=== PATIENT | male | born 1945 | race American Indian/Alaskan Native ===

== ENCOUNTER 2020-05-15 23:18 | Emergency (ER) | payer MEDICARE ==
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
[2020-05-16] MEDS ORDERED: ACETAMINOPHEN 325 MG TAB PO PRN (00:33)
[2020-05-16 00:44] LABS: Basophils % (Auto) 0.6 % (0.0-1.8); Eosinophils # (Auto) 0.3 K/mm3 (0.0-0.4); Eosinophils % (Auto) 4.3 % (0.0-4.3); Hematocrit 35.9 % (35.5-45.6); Lymphocytes # (Auto) 1.6 K/mm3 (1.2-5.4); Lymphocytes % (Auto) 25.6 % (13.4-35.0); Mean Corpuscular HGB Conc 34 % (32-34); Mean Corpuscular Volume 94 fl (84-94); Monocytes # (Auto) 0.5 K/mm3 (0.0-0.8); Monocytes % (Auto) 8.4 % (0.0-7.3); Platelet Count 127 K/mm3 (140-440); Red Blood Count 3.81 M/mm3 (3.65-5.03); Red Cell Distribution Width 14.1 % (13.2-15.2)
[2020-05-16 00:59] LABS: BUN/Creatinine Ratio 18; Blood Urea Nitrogen 16 mg/dL (9-20); Calcium 8.8 mg/dL (8.4-10.2); Hemolysis Index 9
[2020-05-16 01:25] LABS: Free T4 (Free Thyroxine) 0.8 ng/dL (0.76-1.46)
[2020-05-16 04:22] LABS: Bilirubin,Urine NEG (Negative); Blood,Urine SM (Negative); Color,Urine Yellow (Yellow); Mucus,Urine FEW /HPF; Protein,Urine <15 mg/dL mg/dL (Negative); Urobilinogen,Urine < 2.0 mg/dL (<2.0); WBC,Urine < 1.0 /HPF (0.0-6.0)
[2020-05-16 05:09] LABS: Amphetamine Screen,Urine PRESUMPTIVE NEGATIVE; Benzodiazepines Screen,Urine PRESUMPTIVE NEGATIVE; Cannabinoid Screen,Urine PRESUMPTIVE NEGATIVE; Cocaine Screen,Urine PRESUMPTIVE NEGATIVE; Methadone Screen,Urine PRESUMPTIVE NEGATIVE; Opiate Screen,Urine PRESUMPTIVE NEGATIVE
[2020-05-16] MEDS ORDERED: LEVOTHYROXINE 50 MCG TAB PO SCH (06:00)
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
[2020-05-16] MEDS ORDERED: QUEtiapine 25 MG TAB PO SCH (10:00)
[2020-05-16] MEDS ORDERED: PARoxetine 10 MG TAB PO SCH (10:00)
[2020-05-16] MEDS: levETIRAcetam 500 MG/5 ML ORAL LIQD PO SCH ×2 (11:17→22:55)
[2020-05-16] MEDS: QUEtiapine 100 MG TAB PO SCH ×2 (14:23→22:55)
[2020-05-16] MEDS: DIVALPROEX DR 125 MG TAB PO SCH ×2 (14:23→22:55)
[2020-05-16 20:24] VITALS: BP 134/72
[2020-05-16] MEDS ORDERED: ALPRAZolam 0.5 MG TAB PO SCH (22:00)
== END 2020-05-16 23:08 ==
LOC: ED 23:18
DX: F03.90 Unspecified dementia, unspecified severity, without behavioral disturbance, psychotic disturbance, mood disturbance, and anxiety (principal); F20.9 Schizophrenia, unspecified; Z04.6 Encounter for general psychiatric examination, requested by authority; F32.9 Major depressive disorder, single episode, unspecified; F41.9 Anxiety disorder, unspecified; I10 Essential (primary) hypertension
CPT/HCPCS: 36415; 80048; 80307; 81001; 83735; 84439; 84443; 85025; 99285; U0003; 80320; G0480

== ENCOUNTER 2020-05-16 18:02 | Inpatient (IN) | payer MEDICARE ==
[2020-05-17] MEDS: VALPROIC ACID 250 MG/5 ML ORAL LIQD PO SCH ×3 (00:56→21:11)
[2020-05-17] MEDS: QUEtiapine 100 MG TAB PO SCH ×3 (00:57→21:07)
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
[2020-05-17 11:03] LABS: Chol/HDL Ratio 4.08 %
--- NOTE | 2020-05-17 12:31 | Consultation ---
History of Present Illness - Reason for Consult Consult date: 05/17/20 medical management Requesting physician: MIHAI NANCE - History of Present Illness 74 YO Male with Vascular Dementia with Behavioral Disturbance, Cerebral Atherosclerosis, HTN, Hypothyroidism, Seizure Disorder, Schizophrenia, Depression, MITCH admitted to [facility] for Psychiatric stabilization. Patient seen and evaluated in the recreation room. Patient appears comfortable. Patient denies fever, chills, chest pain, palpitation, productive cough, skin rash, recent ill contacts, or known exposure to COVID-19. Patient resting comfortably. No reported nursing events. Past History Past Medical History: other (See HP) Past Surgical History: Other (Femur fracture repair) Social history: single Family history: hypertension Medications and Allergies Allergies Allergy/AdvReac Type Severity Reaction Status Date / Time No Known Allergies Allergy Unverified 05/16/20 00:30 Home Medications Medication Instructions Recorded Confirmed Last Taken Type ALPRAZolam [Xanax TAB] 0.5 mg PO QHS 05/16/20 05/17/20 Unknown History Levothyroxine [Synthroid] 50 mcg PO QAM 05/16/20 05/17/20 Unknown History PARoxetine MESYLATE [Pexeva] 10 mg PO QAM 05/16/20 05/17/20 Unknown History levETIRAcetam [Keppra TAB] 750 mg PO BID 05/16/20 05/17/20 Unknown History Active Meds: Active Medications Melatonin (Melatonin 5 Mg Tab) 5 mg PO QHS PRN PRN Reason: Sleep Quetiapine Fumarate (Quetiapine 100 Mg Tab) 100 mg PO BID [facility] Last Admin: 05/17/20 10:13 Dose: 100 mg Documented by: Valproic Acid (Valproic Acid 250 Mg/5 Ml Oral Liqd) 250 mg PO BID [facility] Last Admin: 05/17/20 10:13 Dose: 250 mg Documented by: Review of Systems Constitutional: no weight loss, no weight gain, no fever, no chills Ears, nose, mouth and throat: no ear pain, no ear discharge, no tinnitis, no nose pain, no nasal discharge Cardiovascular: no chest pain, no orthopnea, no palpitations, no syncope Respiratory: no cough, no cough with sputum, no excessive sputum Gastrointestinal: no abdominal pain, no nausea, no diarrhea, no constipation, no change in bowel habits Genitourinary Male: no hematuria, no flank pain, no discharge, no urinary frequency, no urinary hesitancy Rectal: no pain, no incontinence, no bleeding Musculoskeletal: no neck stiffness, no arm numbness/tingling, no low back pain, no shooting leg pain, no leg numbness/tingling Integumentary: no rash, no pruritis, no redness, no sores, no wounds Neurological: no transient paralysis, no paralysis, no weakness, no parathesias, no numbness, no tingling Psychiatric: no memory loss, no insomnia, no irritability Endocrine: no cold intolerance, no heat intolerance, no polyphagia, no polydipsia, no excessive sweating Hematologic/Lymphatic: no easy bruising, no easy bleeding Allergic/Immunologic: no urticaria, no allergic rhinitis, no wheezing Exam - Constitutional Vitals: Temp Pulse Resp BP Pulse Ox 97.7 F 57 L 18 110/55 98 05/17/20 10:07 05/17/20 10:07 05/17/20 10:07 05/17/20 10:07 05/17/20 10:07 General appearance: Present: no acute distress, well-nourished - EENT Eyes: Present: PERRL ENT: hearing intact, clear oral mucosa - Neck Neck: Present: supple, normal ROM - Respiratory Respiratory effort: normal Respiratory: bilateral: CTA - Cardiovascular Heart Sounds: Present: S1 & S2. Absent: rub, click - Extremities Extremities: pulses symmetrical, No edema Peripheral Pulses: within normal limits - Abdominal General gastrointestinal: Present: soft, non-tender, non-distended, normal bowel sounds Male genitourinary: Present: normal - Integumentary Integumentary: Present: clear, warm, dry - Musculoskeletal Musculoskeletal: gait normal, strength equal bilaterally - Psychiatric Psychiatric: appropriate mood/affect, intact judgment & insight - Neurologic Neurologic: CNII-XII intact, moves all extremities Results - Labs Labs: Abnormal lab results 05/17/20 Range/Units 10:25 LDL Cholesterol Direct 147 H (50-130) mg/dL Assessment and Plan - Patient Problems (1) Cerebral atherosclerosis Current Visit: Yes Status: Acute Plan to address problem: Supportive care, risk factor reduction, antiplatelet therapy as clinically indicated. (2) Dementia with behavioral disturbance Current Visit: No Status: Acute Plan to address problem: Verbal prompting, verbal redirection, supportive care, benzodiazepine therapy as clinically indicated. (3) Hypertension Current Visit: Yes Status: Acute Qualifiers: Hypertension type: essential hypertension Qualified Code(s): I10 - Essential (primary) hypertension Plan to address problem: Continue medical management, monitor blood pressure every shift. (4) Hypothyroidism Current Visit: Yes Status: Acute Qualifiers: Hypothyroidism type: acquired Qualified Code(s): E03.9 - Hypothyroidism, unspecified Plan to address problem: Continue Synthroid therapy, supportive care. (5) Seizure disorder Current Visit: Yes Status: Acute Plan to address problem: Continue Keppra and Depakote therapy, supportive care, seizure precautions
[2020-05-17] MEDS ORDERED: NON-FORMULARY EACH (Levetiracetam [Keppra Tab] 750 MG Tablet) PO SCH (12:46)
[2020-05-17] MEDS: levETIRAcetam 500 MG TAB PO SCH ×2 (13:55→21:08)
[2020-05-17] MEDS: ALPRAZolam 0.5 MG TAB PO SCH (21:07)
[2020-05-18] MEDS: LEVOTHYROXINE 50 MCG TAB PO SCH (05:41)
[2020-05-18] MEDS: QUEtiapine 100 MG TAB PO SCH ×2 (09:20→21:25)
[2020-05-18] MEDS: levETIRAcetam 500 MG TAB PO SCH ×2 (09:20→21:24)
[2020-05-18] MEDS: VALPROIC ACID 250 MG/5 ML ORAL LIQD PO SCH ×2 (09:21→21:25)
--- NOTE | 2020-05-18 09:34 | Progress Note ---
Subjective Date of service: 05/18/20 Principal diagnosis: Dementia with behavioral disturbance Subjective Comment: Psych Nurse: Patient is oriented to self only. He is calm but confused, no aggressive behaviour noted, he is compliant with medications, he paces about in hallway occasionally, needs redirections, no distress noted, will continue to monitor. Psych Progress Patient seen this a.m., appears less irritable compared to initial evaluation. Patient states he is feeling good this morning, patient asked where he is, I informed patient he is in the hospital patient states okay. He reports that he has not had breakfast yet and is hungry do not report patient has had breakfast and finished all of his food. Patient was compliant and followed me all the way to the activity room and was seated next to another patient in which they ex changed greetings and offered patient water. Patient for continued patient acute psychiatric utilization: Patient appears less irritable, more compliant, I will continue to observe for mood stability. Review of systems ROS cannot be reliably obtained from the patient due to his confusion MENTAL STATUS EXAMINATION General Appearance and Behavior: Age appropriate, good hygiene, wearing appropriate clothes, cooperative polite with questioning. Cooperation: Engaged Psychomotor Behavior: Psychomotor normal Mood: I feel good Affect and affective range: Congruent with mood Thought Process: Logical Thought Content: Illogical Speech: Normal volume, Regular rate and rhythm, Intellectual Functioning: Poor Suicidal Ideation: N/A Homicidal Ideation: N/A Impulse Control: Unimpaired Insight and Judgment: Impaired Memory: memory impaired Attention:Distractible, Orientation: Alert, but disoriented and confused Diagnoses: Assessment and Plan - Psychiatric problem (1) Dementia with behavioral disturbance Current Visit: Yes Status: Acute Treatment Plan No medication changes to patient admitted for inpatient psychiatric evaluation, medication adjustment and close monitoring The patient's behavior, mood, sleep and appetite will be closely monitored. Patient enrolled in individual and group therapeutic sessions and encouraged to attend. Patient provided with a safe and structured environment. Patient's physical health needs will be addressed by the Hospitalist. Hospitalist Consulted Labs including CBC, CMP, Lipid profile and Hemoglobin A1C levels ordered for baseline reference Social Assessment will be completed and the Numerical Control Lathe Operator will work with patient and family to ensure a suitable and safe disposition Medication adjustment will be made as clinically indicated Usual Wellness [employer]/Preservation: - Start Trazodone 50 mg po QHS & 50 mg po QHS PRN between 10 PM & 2 AM for insomnia - Start Melatonin 5 mg po QHS to promote circadian rhythm - Start [place]-3 for brain health, reduce impulsivity, and as adjunctive treatment for mood disorder, continue upon discharge given overall benefits. - Start B1 prophylaxis with 200 mg po for 5 days The patient agreed on the treatment plan, understood the risk, benefit, alternative treatment, potential consequence of no treatment, and gave informed consent. Initial Certification Inpatient psych services: I certify that the inpatient psychiatric services are required for treatment that could reasonably be expected to improve the patient's condition. Estimated days: 6 Post hospital care: primary care provider, psychiatric provider Medications and Allergies Allergies Allergy/AdvReac Type Severity Reaction Status Date / Time No Known Allergies Allergy Unverified 05/16/20 00:30 Home Medications Medication Instructions Recorded Confirmed Last Taken Type ALPRAZolam [Xanax TAB] 0.5 mg PO QHS 05/16/20 05/17/20 Unknown History Levothyroxine [Synthroid] 50 mcg PO QAM 05/16/20 05/17/20 Unknown History PARoxetine MESYLATE [Pexeva] 10 mg PO QAM 05/16/20 05/17/20 Unknown History levETIRAcetam [Keppra TAB] 750 mg PO BID 05/16/20 05/17/20 Unknown History Active Meds: Active Medications Alprazolam (Alprazolam 0.5 Mg Tab) 0.5 mg PO QHS [facility] Last Admin: 05/17/20 21:07 Dose: 0.5 mg Documented by: Levetiracetam (Levetiracetam 500 Mg Tab) 750 mg PO BID [facility] Last Admin: 05/18/20 09:20 Dose: 750 mg Documented by: Levothyroxine Sodium (Levothyroxine 50 Mcg Tab) 50 mcg PO QDAY@0600 [facility] Last Admin: 05/18/20 05:41 Dose: 50 mcg Documented by: Melatonin (Melatonin 5 Mg Tab) 5 mg PO QHS PRN PRN Reason: Sleep Quetiapine Fumarate (Quetiapine 100 Mg Tab) 100 mg PO BID [facility] Last Admin: 05/18/20 09:20 Dose: 100 mg Documented by: Valproic Acid (Valproic Acid 250 Mg/5 Ml Oral Liqd) 250 mg PO BID [facility] Last Admin: 05/18/20 09:21 Dose: 250 mg Documented by: Results - Results Labs/Vitals: Laboratory Last Values POC Glucose 94 mg/dL (70-105) 05/17/20 00:09 Hemoglobin A1c 5.3 % (4-6) 05/17/20 10:25 Triglycerides 89 mg/dL (2-149) 05/17/20 10:25 Cholesterol 184 mg/dL (50-199) 05/17/20 10:25 LDL Cholesterol Direct 147 mg/dL (50-130) H 05/17/20 10:25 HDL Cholesterol 45 mg/dL (40-59) 05/17/20 10:25 Cholesterol/HDL Ratio 4.08 % 05/17/20 10:25 TSH 1.180 mlU/mL (0.270-4.200) 05/17/20 10:25 Last Vital Signs Temp 97.5 F L 05/18/20 06:55 Pulse 57 L 05/18/20 06:55 Resp 16 05/18/20 06:55 BP 108/48 05/18/20 06:55 Pulse Ox 98 05/18/20 06:55
[2020-05-18] MEDS: ALPRAZolam 0.5 MG TAB PO SCH (21:25)
[2020-05-19] MEDS: LEVOTHYROXINE 50 MCG TAB PO SCH (07:17)
--- NOTE | 2020-05-19 07:32 | Progress Note ---
Subjective Date of service: 05/19/20 Principal diagnosis: Dementia with behavioral disturbance Subjective Comment: Psych Nurse: Last evening the patient wandered around the unit. He is easily redirectable. Patient denies wanting to harm himself or others. He is medication compliant. Patient is confused but polite with interactions. Will continue to monitor patient for safety. Psych Progress Hx of dementia, appears confused, wandering and pacing into open rooms but easily redirectibale, no irritability noted Patient for continued patient acute psychiatric utilization: Patients mood, staff interaction continues to be stable without any behavioral disturbances noted, I will continue to observe for mood stability. Review of systems ROS cannot be reliably obtained from the patient due to his confusion MENTAL STATUS EXAMINATION General Appearance and Behavior: Age appropriate, good hygiene, wearing appropriate clothes, cooperative polite with questioning. Cooperation: Engaged Psychomotor Behavior: Psychomotor normal Mood: I feel good Affect and affective range: Congruent with mood Thought Process: Logical Thought Content: Illogical Speech: Normal volume, Regular rate and rhythm, Intellectual Functioning: Poor Suicidal Ideation: N/A Homicidal Ideation: N/A Impulse Control: Unimpaired Insight and Judgment: Impaired Memory: memory impaired Attention:Distractible, Orientation: Alert, but disoriented and confused Diagnoses: Assessment and Plan - Psychiatric problem (1) Dementia with behavioral disturbance Current Visit: Yes Status: Acute Treatment Plan No medication changes to patient admitted for inpatient psychiatric evaluation, medication adjustment and close monitoring The patient's behavior, mood, sleep and appetite will be closely monitored. Patient enrolled in individual and group therapeutic sessions and encouraged to attend. Patient provided with a safe and structured environment. Patient's physical health needs will be addressed by the Hospitalist. Hospitalist Consulted Labs including CBC, CMP, Lipid profile and Hemoglobin A1C levels ordered for baseline reference Social Assessment will be completed and the End Maker will work with patient and family to ensure a suitable and safe disposition Medication adjustment will be made as clinically indicated Usual Wellness [employer]/Preservation: - Start Trazodone 50 mg po QHS & 50 mg po QHS PRN between 10 PM & 2 AM for insomnia - Start Melatonin 5 mg po QHS to promote circadian rhythm - Start [place]-3 for brain health, reduce impulsivity, and as adjunctive treatment for mood disorder, continue upon discharge given overall benefits. - Start B1 prophylaxis with 200 mg po for 5 days The patient agreed on the treatment plan, understood the risk, benefit, alternative treatment, potential consequence of no treatment, and gave informed consent. Initial Certification Inpatient psych services: I certify that the inpatient psychiatric services are required for treatment that could reasonably be expected to improve the patient's condition. Estimated days: 5 Post hospital care: primary care provider, psychiatric provider Medications and Allergies Allergies Allergy/AdvReac Type Severity Reaction Status Date / Time No Known Allergies Allergy Unverified 05/16/20 00:30 Home Medications Medication Instructions Recorded Confirmed Last Taken Type ALPRAZolam [Xanax TAB] 0.5 mg PO QHS 05/16/20 05/17/20 Unknown History Levothyroxine [Synthroid] 50 mcg PO QAM 05/16/20 05/17/20 Unknown History PARoxetine MESYLATE [Pexeva] 10 mg PO QAM 05/16/20 05/17/20 Unknown History levETIRAcetam [Keppra TAB] 750 mg PO BID 05/16/20 05/17/20 Unknown History Active Meds: Active Medications Alprazolam (Alprazolam 0.5 Mg Tab) 0.5 mg PO QHS [facility] Last Admin: 05/18/20 21:25 Dose: 0.5 mg Documented by: Levetiracetam (Levetiracetam 500 Mg Tab) 750 mg PO BID [facility] Last Admin: 05/18/20 21:24 Dose: 750 mg Documented by: Levothyroxine Sodium (Levothyroxine 50 Mcg Tab) 50 mcg PO QDAY@0600 [facility] Last Admin: 05/19/20 07:17 Dose: 50 mcg Documented by: Melatonin (Melatonin 5 Mg Tab) 5 mg PO QHS PRN PRN Reason: Sleep Quetiapine Fumarate (Quetiapine 100 Mg Tab) 100 mg PO BID [facility] Last Admin: 05/18/20 21:25 Dose: 100 mg Documented by: Valproic Acid (Valproic Acid 250 Mg/5 Ml Oral Liqd) 250 mg PO BID [facility] Last Admin: 05/18/20 21:25 Dose: 250 mg Documented by: Results - Results Labs/Vitals: Laboratory Last Values POC Glucose 94 mg/dL (70-105) 05/17/20 00:09 Hemoglobin A1c 5.3 % (4-6) 05/17/20 10:25 Triglycerides 89 mg/dL (2-149) 05/17/20 10:25 Cholesterol 184 mg/dL (50-199) 05/17/20 10:25 LDL Cholesterol Direct 147 mg/dL (50-130) H 05/17/20 10:25 HDL Cholesterol 45 mg/dL (40-59) 05/17/20 10:25 Cholesterol/HDL Ratio 4.08 % 05/17/20 10:25 TSH 1.180 mlU/mL (0.270-4.200) 05/17/20 10:25 Last Vital Signs Temp 97.5 F L 05/18/20 19:50 Pulse 78 05/18/20 19:50 Resp 20 05/18/20 19:50 BP 111/56 05/18/20 19:50 Pulse Ox 98 05/18/20 19:50
[2020-05-19] MEDS: levETIRAcetam 500 MG TAB PO SCH ×2 (09:42→22:13)
[2020-05-19] MEDS: QUEtiapine 100 MG TAB PO SCH ×2 (09:42→22:15)
[2020-05-19] MEDS: VALPROIC ACID 250 MG/5 ML ORAL LIQD PO SCH ×2 (09:42→22:12)
--- NOTE | 2020-05-19 20:30 | Progress Note ---
Assessment and Plan - Patient Problems (1) Cerebral atherosclerosis Current Visit: Yes Status: Acute Plan to address problem: Supportive care, risk factor reduction, antiplatelet therapy as clinically indicated. (2) Dementia with behavioral disturbance Current Visit: No Status: Acute Plan to address problem: Verbal prompting, verbal redirection, supportive care, benzodiazepine therapy as clinically indicated. (3) Hypertension Current Visit: Yes Status: Acute Qualifiers: Hypertension type: essential hypertension Qualified Code(s): I10 - Essential (primary) hypertension Plan to address problem: Continue medical management, monitor blood pressure every shift. (4) Hypothyroidism Current Visit: Yes Status: Acute Qualifiers: Hypothyroidism type: acquired Qualified Code(s): E03.9 - Hypothyroidism, unspecified Plan to address problem: Continue Synthroid therapy, supportive care. (5) Seizure disorder Current Visit: Yes Status: Acute Plan to address problem: Continue Keppra and Depakote therapy, supportive care, seizure precautions History Interval history: 74 YO Male with Vascular Dementia with Behavioral Disturbance, Cerebral Atherosclerosis, HTN, Hypothyroidism, Seizure Disorder, Schizophrenia, Depression, MITCH admitted to [facility] for Psychiatric stabilization. Patient seen and evaluated in the recreation room. Patient appears comfortable. Patient denies pain. Patient resting comfortably. No reported nursing events. Hospitalist Physical - Constitutional Vitals: Temp Pulse Resp BP Pulse Ox 97.9 F 70 18 107/53 98 05/19/20 08:34 05/19/20 08:34 05/19/20 08:34 05/19/20 08:34 05/19/20 08:34 General appearance: Present: no acute distress, well-nourished - EENT Eyes: Present: PERRL, EOM intact ENT: hearing intact - Neck Neck: Present: supple - Respiratory Respiratory effort: normal Respiratory: bilateral: CTA - Cardiovascular Rhythm: regular Heart Sounds: Present: S1 & S2 - Extremities Extremities: no ischemia Peripheral Pulses: within normal limits - Abdominal General gastrointestinal: soft, non-tender, non-distended - Integumentary Integumentary: Present: clear, dry - Psychiatric Psychiatric: cooperative - Neurologic Neurologic: CNII-XII intact Results - Labs Labs: Laboratory Last Values POC Glucose 94 mg/dL (70-105) 05/17/20 00:09 Hemoglobin A1c 5.3 % (4-6) 05/17/20 10:25 Triglycerides 89 mg/dL (2-149) 05/17/20 10:25 Cholesterol 184 mg/dL (50-199) 05/17/20 10:25 LDL Cholesterol Direct 147 mg/dL (50-130) H 05/17/20 10:25 HDL Cholesterol 45 mg/dL (40-59) 05/17/20 10:25 Cholesterol/HDL Ratio 4.08 % 05/17/20 10:25 TSH 1.180 mlU/mL (0.270-4.200) 05/17/20 10:25 Nev[place]/IV: Voiding Method Toilet Active Medications - Current Medications Current Medications: Generic Name Dose Route Start Last Admin Trade Name Freq PRN Reason Stop Dose Admin Alprazolam 0.5 mg 05/17/20 22:00 05/18/20 21:25 Alprazolam 0.5 Mg Tab PO 0.5 mg QHS ANA Administration Levetiracetam 750 mg 05/17/20 13:00 05/19/20 09:42 Levetiracetam 500 Mg Tab PO 750 mg BID ANA Administration Levothyroxine Sodium 50 mcg 05/18/20 06:00 05/19/20 07:17 Levothyroxine 50 Mcg Tab PO 50 mcg QDAY@0600 ANA Administration Melatonin 5 mg 05/16/20 18:33 Melatonin 5 Mg Tab PO QHS PRN Sleep Quetiapine Fumarate 100 mg 05/16/20 22:00 05/19/20 09:42 Quetiapine 100 Mg Tab PO 100 mg BID ANA Administration Valproic Acid 250 mg 05/16/20 22:00 05/19/20 09:42 Valproic Acid 250 Mg/5 Ml Oral Liqd PO 250 mg BID ANA Administration
[2020-05-19] MEDS: ALPRAZolam 0.5 MG TAB PO SCH (22:16)
[2020-05-20] MEDS: LEVOTHYROXINE 50 MCG TAB PO SCH (06:33)
--- NOTE | 2020-05-20 07:35 | Progress Note ---
Subjective Date of service: 05/20/20 Principal diagnosis: Dementia with behavioral disturbance Subjective Comment: Psych Nurse: Pt received in the room relaxing. Confused. A&OX1.. Denies pain, SI or HI. No acute distress observed and none reported. Will continue to monitor. pt was present for full duration of group. pt was attentive while peers shared and was able to share his thoughts with the group. 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 Psych Progress Hx of dementia, appears pleasantly confused, responds nicely to greetings, no irritability noted. Patient for continued patient acute psychiatric utilization: Patients mood improved, staff interaction continues to be stable without any behavioral disturbances, will start planning for safety discharge Review of systems ROS cannot be reliably obtained from the patient due to his confusion MENTAL STATUS EXAMINATION General Appearance and Behavior: Age appropriate, good hygiene, wearing appropriate clothes, cooperative polite with questioning. Cooperation: Engaged Psychomotor Behavior: Psychomotor normal Mood: I feel good Affect and affective range: Congruent with mood Thought Process: Logical Thought Content: Illogical Speech: Normal volume, Regular rate and rhythm, Intellectual Functioning: Poor Suicidal Ideation: N/A Homicidal Ideation: N/A Impulse Control: impaired Insight and Judgment: Impaired Memory: memory impaired Attention:Distractible, Orientation: Alert, but disoriented and confused Diagnoses: Assessment and Plan - Psychiatric problem (1) Dementia with behavioral disturbance Current Visit: Yes Status: Acute Treatment Plan No medication changes to patient admitted for inpatient psychiatric evaluation, medication adjustment and close monitoring The patient's behavior, mood, sleep and appetite will be closely monitored. Patient enrolled in individual and group therapeutic sessions and encouraged to attend. Patient provided with a safe and structured environment. Patient's physical health needs will be addressed by the Hospitalist. Hospitalist Consulted Labs including CBC, CMP, Lipid profile and Hemoglobin A1C levels ordered for baseline reference Social Assessment will be completed and the Utility Supervisor [employer] will work with patient and family to ensure a suitable and safe disposition Medication adjustment will be made as clinically indicated Usual Wellness Hoahaoism/Preservation: - Start Trazodone 50 mg po QHS & 50 mg po QHS PRN between 10 PM & 2 AM for insomnia - Start Melatonin 5 mg po QHS to promote circadian rhythm - Start [place]-3 for brain health, reduce impulsivity, and as adjunctive treatment for mood disorder, continue upon discharge given overall benefits. - Start B1 prophylaxis with 200 mg po for 5 days The patient agreed on the treatment plan, understood the risk, benefit, alternative treatment, potential consequence of no treatment, and gave informed consent. Initial Certification Inpatient psych services: I certify that the inpatient psychiatric services are required for treatment that could reasonably be expected to improve the patient's condition. Estimated days: 3 Post hospital care: primary care provider, psychiatric provider Medications and Allergies Allergies Allergy/AdvReac Type Severity Reaction Status Date / Time No Known Allergies Allergy Unverified 05/16/20 00:30 Home Medications Medication Instructions Recorded Confirmed Last Taken Type ALPRAZolam [Xanax TAB] 0.5 mg PO QHS 05/16/20 05/17/20 Unknown History Levothyroxine [Synthroid] 50 mcg PO QAM 05/16/20 05/17/20 Unknown History PARoxetine MESYLATE [Pexeva] 10 mg PO QAM 05/16/20 05/17/20 Unknown History levETIRAcetam [Keppra TAB] 750 mg PO BID 05/16/20 05/17/20 Unknown History Active Meds: Active Medications Alprazolam (Alprazolam 0.5 Mg Tab) 0.5 mg PO QHS [facility] Last Admin: 05/19/20 22:16 Dose: 0.5 mg Documented by: Levetiracetam (Levetiracetam 500 Mg Tab) 750 mg PO BID [facility] Last Admin: 05/19/20 22:13 Dose: 750 mg Documented by: Levothyroxine Sodium (Levothyroxine 50 Mcg Tab) 50 mcg PO QDAY@0600 [facility] Last Admin: 05/20/20 06:33 Dose: 50 mcg Documented by: Melatonin (Melatonin 5 Mg Tab) 5 mg PO QHS PRN PRN Reason: Sleep Quetiapine Fumarate (Quetiapine 100 Mg Tab) 100 mg PO BID [facility] Last Admin: 05/19/20 22:15 Dose: 100 mg Documented by: Valproic Acid (Valproic Acid 250 Mg/5 Ml Oral Liqd) 250 mg PO BID [facility] Last Admin: 05/19/20 22:12 Dose: 250 mg Documented by: Results - Results Labs/Vitals: Laboratory Last Values POC Glucose 94 mg/dL (70-105) 05/17/20 00:09 Hemoglobin A1c 5.3 % (4-6) 05/17/20 10:25 Triglycerides 89 mg/dL (2-149) 05/17/20 10:25 Cholesterol 184 mg/dL (50-199) 05/17/20 10:25 LDL Cholesterol Direct 147 mg/dL (50-130) H 05/17/20 10:25 HDL Cholesterol 45 mg/dL (40-59) 05/17/20 10:25 Cholesterol/HDL Ratio 4.08 % 05/17/20 10:25 TSH 1.180 mlU/mL (0.270-4.200) 05/17/20 10:25 Last Vital Signs Temp 97.9 F 05/19/20 08:34 Pulse 70 05/19/20 08:34 Resp 18 05/19/20 08:34 BP 107/53 05/19/20 08:34 Pulse Ox 98 05/19/20 08:34
--- NOTE | 2020-05-20 09:02 | Discharge Summary ---
Providers - Providers Date of Admission: 05/16/20 23:54 Attending physician: MIHAI NANCE MD 05/16/20 18:30 Consult to Physician [CONS] Routine Comment: Consulting Provider: RAHAT WEIR Physician Instructions: Reason For Exam: Med Managt Primary care physician: EVANGELINA KAPADIA Hospitalization Reason for admission: Danger to others, impaired reality testing Condition: Good Hospital course: The patient was provided inpatient psychiatric treatment with safe and supportive environment, group/individual therapy, psychiatric medication, medication adjustment, adverse effect monitor, medical evaluation, medical treatment, social service assessment, social support meeting, placement assessment and psycho-education. The patients mood, behavior, compliance to treatment and appreciation on social support are improved and stabilized. At the time of discharge, the patient no endangering behavior and no debilitating adverse effects. . Disposition: DC-30 STILL A PATIENT Allergies/Adverse Reactions: Allergies No Known Allergies Allergy (Unverified 05/16/20 00:30) Vital Signs: Last Vital Signs Temp 97.9 F 05/19/20 08:34 Pulse 70 05/19/20 08:34 Resp 18 05/19/20 08:34 BP 107/53 05/19/20 08:34 Pulse Ox 98 05/19/20 08:34 Last Lab: Laboratory Last Values POC Glucose 94 mg/dL (70-105) 05/17/20 00:09 Hemoglobin A1c 5.3 % (4-6) 05/17/20 10:25 Triglycerides 89 mg/dL (2-149) 05/17/20 10:25 Cholesterol 184 mg/dL (50-199) 05/17/20 10:25 LDL Cholesterol Direct 147 mg/dL (50-130) H 05/17/20 10:25 HDL Cholesterol 45 mg/dL (40-59) 05/17/20 10:25 Cholesterol/HDL Ratio 4.08 % 05/17/20 10:25 TSH 1.180 mlU/mL (0.270-4.200) 05/17/20 10:25 Core Measure Documentation - Palliative Care Palliative Care/ Comfort Measures: Not Applicable - Core Measures Any of the following diagnoses?: none Exam - Constitutional Vitals: Temp Pulse Resp BP Pulse Ox 97.9 F 70 18 107/53 98 05/19/20 08:34 05/19/20 08:34 05/19/20 08:34 05/19/20 08:34 05/19/20 08:34 General appearance: Present: no acute distress - EENT Eyes: Present: PERRL, EOM intact ENT: clear oral mucosa - Neck Neck: Present: supple, normal ROM - Respiratory Respiratory effort: normal - Abdominal Male genitourinary: Present: deferred - Integumentary Integumentary: Present: clear, warm Plan Care Plan Goals: Goals: Maintain good and stable mental health. Plan of Treatment: The patient should be compliant with medications, not to use drugs and not to drink alcohol. The patient understands that if suicidal ideas, homicidal ideas, or any endangering thoughts arise, the patient should immediately seek for emergent assistance including but not limited to crisis hot line and emergency room. Follow up with outpatient Psychiatrist and PCP within 7 - 14 days of discharge. Follow up with: EVANGELINA KAPADIA MD [Primary Care Provider] - 7 Days Prescriptions: VALPROIC ACID Liq [DepaKENE Liq] 250 mg PO BID 30 Days oral.liqd QUEtiapine [SEROquel] 100 mg PO BID 30 Days #60 tablet ALPRAZolam [Xanax TAB] 0.5 mg PO QAM 30 Days #30 tablet
[2020-05-20] MEDS: levETIRAcetam 500 MG TAB PO SCH ×2 (10:59→22:13)
[2020-05-20] MEDS: VALPROIC ACID 250 MG/5 ML ORAL LIQD PO SCH ×2 (11:00→22:13)
[2020-05-20] MEDS: QUEtiapine 100 MG TAB PO SCH ×2 (11:01→22:14)
[2020-05-20] MEDS: ALPRAZolam 0.5 MG TAB PO SCH (22:14)
[2020-05-21] MEDS: LEVOTHYROXINE 50 MCG TAB PO SCH (06:40)
--- NOTE | 2020-05-21 07:37 | Progress Note ---
Subjective Date of service: 05/21/20 Principal diagnosis: Dementia with behavioral disturbance Subjective Comment: Psych Nurse: Pt rested w/o incident. Compliant with tx regimens.No behavioral or acute distress observed. Will continue to monitor. Psych Progress Patient seen this AM, reports doing okay, says he has no complaints, says he is good but though appears confused and does seem to comprehend questions being asked fully. Patient for continued patient acute psychiatric utilization: Patients mood improved, staff interaction continues to be stable without any behavioral disturbances, planning for safety discharge Review of systems ROS cannot be reliably obtained from the patient due to his confusion MENTAL STATUS EXAMINATION General Appearance and Behavior: Age appropriate, good hygiene, wearing appropriate clothes, cooperative polite with questioning. Cooperation: Engaged Psychomotor Behavior: Psychomotor normal Mood: I feel good Affect and affective range: Congruent with mood Thought Process: Logical Thought Content: Illogical Speech: Normal volume, Regular rate and rhythm, Intellectual Functioning: Poor Suicidal Ideation: N/A Homicidal Ideation: N/A Impulse Control: impaired Insight and Judgment: Impaired Memory: memory impaired Attention:Distractible, Orientation: Alert, but disoriented and confused Diagnoses: Assessment and Plan - Psychiatric problem (1) Dementia with behavioral disturbance Current Visit: Yes Status: Acute Treatment Plan No medication changes to patient admitted for inpatient psychiatric evaluation, medication adjustment and close monitoring The patient's behavior, mood, sleep and appetite will be closely monitored. Patient enrolled in individual and group therapeutic sessions and encouraged to attend. Patient provided with a safe and structured environment. Patient's physical health needs will be addressed by the Hospitalist. Hospitalist Consulted Labs including CBC, CMP, Lipid profile and Hemoglobin A1C levels ordered for baseline reference Social Assessment will be completed and the Radiochemical Technician will work with patient and family to ensure a suitable and safe disposition Medication adjustment will be made as clinically indicated Usual Wellness Jew/Preservation: - Start Trazodone 50 mg po QHS & 50 mg po QHS PRN between 10 PM & 2 AM for insomnia - Start Melatonin 5 mg po QHS to promote circadian rhythm - Start [place]-3 for brain health, reduce impulsivity, and as adjunctive treatment for mood disorder, continue upon discharge given overall benefits. - Start B1 prophylaxis with 200 mg po for 5 days The patient agreed on the treatment plan, understood the risk, benefit, alternative treatment, potential consequence of no treatment, and gave informed consent. Initial Certification Inpatient psych services: I certify that the inpatient psychiatric services are required for treatment that could reasonably be expected to improve the patient's condition. Estimated days: 1 Post hospital care: primary care provider, psychiatric provider Medications and Allergies Allergies Allergy/AdvReac Type Severity Reaction Status Date / Time No Known Allergies Allergy Unverified 05/16/20 00:30 Home Medications Medication Instructions Recorded Confirmed Last Taken Type Levothyroxine [Synthroid] 50 mcg PO QAM 05/16/20 05/17/20 Unknown History levETIRAcetam [Keppra TAB] 750 mg PO BID 05/16/20 05/17/20 Unknown History ALPRAZolam [Xanax TAB] 0.5 mg PO QAM 30 Days #30 tablet 05/20/20 Unknown Rx QUEtiapine [SEROquel] 100 mg PO BID 30 Days #60 tablet 05/20/20 Unknown Rx VALPROIC ACID Liq [DepaKENE Liq] 250 mg PO BID 30 Days oral.liqd 05/20/20 Unknown Rx Active Meds: Active Medications Alprazolam (Alprazolam 0.5 Mg Tab) 0.5 mg PO QHS [facility] Last Admin: 05/20/20 22:14 Dose: 0.5 mg Documented by: Levetiracetam (Levetiracetam 500 Mg Tab) 750 mg PO BID [facility] Last Admin: 05/20/20 22:13 Dose: 750 mg Documented by: Levothyroxine Sodium (Levothyroxine 50 Mcg Tab) 50 mcg PO QDAY@0600 [facility] Last Admin: 05/21/20 06:40 Dose: 50 mcg Documented by: Melatonin (Melatonin 5 Mg Tab) 5 mg PO QHS PRN PRN Reason: Sleep Quetiapine Fumarate (Quetiapine 100 Mg Tab) 100 mg PO BID [facility] Last Admin: 05/20/20 22:14 Dose: 100 mg Documented by: Valproic Acid (Valproic Acid 250 Mg/5 Ml Oral Liqd) 250 mg PO BID [facility] Last Admin: 05/20/20 22:13 Dose: 250 mg Documented by: Results - Results Labs/Vitals: Laboratory Last Values POC Glucose 94 mg/dL (70-105) 05/17/20 00:09 Hemoglobin A1c 5.3 % (4-6) 05/17/20 10:25 Triglycerides 89 mg/dL (2-149) 05/17/20 10:25 Cholesterol 184 mg/dL (50-199) 05/17/20 10:25 LDL Cholesterol Direct 147 mg/dL (50-130) H 05/17/20 10:25 HDL Cholesterol 45 mg/dL (40-59) 05/17/20 10:25 Cholesterol/HDL Ratio 4.08 % 05/17/20 10:25 TSH 1.180 mlU/mL (0.270-4.200) 05/17/20 10:25 Last Vital Signs Temp 97.7 F 05/20/20 19:37 Pulse 81 05/20/20 19:37 Resp 20 05/20/20 19:37 BP 119/71 05/20/20 19:37 Pulse Ox 98 05/20/20 19:37
[2020-05-21] MEDS: levETIRAcetam 500 MG TAB PO SCH ×2 (09:31→21:36)
[2020-05-21] MEDS: VALPROIC ACID 250 MG/5 ML ORAL LIQD PO SCH ×2 (09:31→21:36)
[2020-05-21] MEDS: QUEtiapine 100 MG TAB PO SCH ×2 (09:32→21:36)
[2020-05-21] MEDS: ALPRAZolam 0.5 MG TAB PO SCH (21:36)
[2020-05-21] MEDS: MELATONIN 5 MG TAB PO PRN (21:38)
[2020-05-22] MEDS: LEVOTHYROXINE 50 MCG TAB PO SCH (06:16)
--- NOTE | 2020-05-22 08:02 | Progress Note ---
Subjective Date of service: 05/22/20 Principal diagnosis: Dementia with behavioral disturbance Subjective Comment: Psych Nurse: Pt spent the evening wandering the around the unit, pt is alert and oriented to person, calm and cooperative, pleasantly confused required redirection, no agitation,able to make needs known, consumed 100% of snack, medication compliant, safety measure maintained, no distress noted, will continue to monitor for safety. Psych Progress Patient seen this AM, says he feels good, denies any physical complaints, eats well and sleeps over night without any issues. Patient remains stable, and compliant with medications. Patient for continued patient acute psychiatric utilization: Planning for safety discharge Review of systems ROS cannot be reliably obtained from the patient due to his confusion MENTAL STATUS EXAMINATION General Appearance and Behavior: Age appropriate, good hygiene, wearing appropriate clothes, cooperative polite with questioning. Cooperation: Engaged Psychomotor Behavior: Psychomotor normal Mood: I feel good Affect and affective range: Congruent with mood Thought Process: Logical Thought Content: Illogical Speech: Normal volume, Regular rate and rhythm, Intellectual Functioning: Poor Suicidal Ideation: N/A Homicidal Ideation: N/A Impulse Control: impaired Insight and Judgment: Impaired Memory: memory impaired Attention:Distractible, Orientation: Alert, but disoriented and confused Diagnoses: Assessment and Plan - Psychiatric problem (1) Dementia with behavioral disturbance Current Visit: Yes Status: Acute Treatment Plan No medication changes to patient admitted for inpatient psychiatric evaluation, medication adjustment and close monitoring The patient's behavior, mood, sleep and appetite will be closely monitored. Patient enrolled in individual and group therapeutic sessions and encouraged to attend. Patient provided with a safe and structured environment. Patient's physical health needs will be addressed by the Hospitalist. Hospitalist Consulted Labs including CBC, CMP, Lipid profile and Hemoglobin A1C levels ordered for baseline reference Social Assessment will be completed and the Intelligence Manager will work with patient and family to ensure a suitable and safe disposition Medication adjustment will be made as clinically indicated Usual Wellness Scientologist/Preservation: - Start Trazodone 50 mg po QHS & 50 mg po QHS PRN between 10 PM & 2 AM for insomnia - Start Melatonin 5 mg po QHS to promote circadian rhythm - Start [place]-3 for brain health, reduce impulsivity, and as adjunctive treatment for mood disorder, continue upon discharge given overall benefits. - Start B1 prophylaxis with 200 mg po for 5 days The patient agreed on the treatment plan, understood the risk, benefit, alternative treatment, potential consequence of no treatment, and gave informed consent. Initial Certification Inpatient psych services: I certify that the inpatient psychiatric services are required for treatment that could reasonably be expected to improve the patient's condition. Estimated days: 1 Post hospital care: primary care provider, psychiatric provider Medications and Allergies Allergies Allergy/AdvReac Type Severity Reaction Status Date / Time No Known Allergies Allergy Unverified 05/16/20 00:30 Home Medications Medication Instructions Recorded Confirmed Last Taken Type Levothyroxine [Synthroid] 50 mcg PO QAM 05/16/20 05/17/20 Unknown History levETIRAcetam [Keppra TAB] 750 mg PO BID 05/16/20 05/17/20 Unknown History ALPRAZolam [Xanax TAB] 0.5 mg PO QAM 30 Days #30 tablet 05/20/20 Unknown Rx QUEtiapine [SEROquel] 100 mg PO BID 30 Days #60 tablet 05/20/20 Unknown Rx VALPROIC ACID Liq [DepaKENE Liq] 250 mg PO BID 30 Days oral.liqd 05/20/20 Unknown Rx Active Meds: Active Medications Alprazolam (Alprazolam 0.5 Mg Tab) 0.5 mg PO QHS [facility] Last Admin: 05/21/20 21:36 Dose: 0.5 mg Documented by: Levetiracetam (Levetiracetam 500 Mg Tab) 750 mg PO BID [facility] Last Admin: 05/21/20 21:36 Dose: 750 mg Documented by: Levothyroxine Sodium (Levothyroxine 50 Mcg Tab) 50 mcg PO QDAY@0600 [facility] Last Admin: 05/22/20 06:16 Dose: 50 mcg Documented by: Melatonin (Melatonin 5 Mg Tab) 5 mg PO QHS PRN PRN Reason: Sleep Last Admin: 05/21/20 21:38 Dose: 5 mg Documented by: Quetiapine Fumarate (Quetiapine 100 Mg Tab) 100 mg PO BID [facility] Last Admin: 05/21/20 21:36 Dose: 100 mg Documented by: Valproic Acid (Valproic Acid 250 Mg/5 Ml Oral Liqd) 250 mg PO BID [facility] Last Admin: 05/21/20 21:36 Dose: 250 mg Documented by: Results - Results Labs/Vitals: Laboratory Last Values POC Glucose 94 mg/dL (70-105) 05/17/20 00:09 Hemoglobin A1c 5.3 % (4-6) 05/17/20 10:25 Triglycerides 89 mg/dL (2-149) 05/17/20 10:25 Cholesterol 184 mg/dL (50-199) 05/17/20 10:25 LDL Cholesterol Direct 147 mg/dL (50-130) H 05/17/20 10:25 HDL Cholesterol 45 mg/dL (40-59) 05/17/20 10:25 Cholesterol/HDL Ratio 4.08 % 05/17/20 10:25 TSH 1.180 mlU/mL (0.270-4.200) 05/17/20 10:25 Last Vital Signs Temp 97.5 F L 05/21/20 22:00 Pulse 80 05/21/20 22:00 Resp 16 05/21/20 22:00 BP 121/62 05/21/20 22:00 Pulse Ox 98 05/21/20 22:00
--- NOTE | 2020-05-22 08:22 | Discharge Summary ---
Providers - Providers Date of Admission: 05/16/20 23:54 Date of discharge: 05/23/20 Attending physician: MIHAI NANCE MD 05/16/20 18:30 Consult to Physician [CONS] Routine Comment: Consulting Provider: FARHANA HERRERA Physician Instructions: Reason For Exam: Med Managt Primary care physician: EVANGELINA KAPADIA Hospitalization Reason for admission: Danger to others, impaired reality testing Condition: Good Hospital course: The patient was provided inpatient psychiatric treatment with safe and supportive environment, group/individual therapy, psychiatric medication, medication adjustment, adverse effect monitor, medical evaluation, medical treatment, social service assessment, social support meeting, placement assessment and psycho-education. The patients mood, behavior, compliance to treatment and appreciation on social support are improved and stabilized. At the time of discharge, the patient no endangering behavior and no debilitating adverse effects. . Disposition: DC-01 TO HOME OR SELFCARE Allergies/Adverse Reactions: Allergies No Known Allergies Allergy (Unverified 05/16/20 00:30) Vital Signs: Last Vital Signs Temp 98.0 F 05/22/20 07:25 Pulse 63 05/22/20 07:25 Resp 18 05/22/20 07:25 BP 100/56 05/22/20 07:25 Pulse Ox 99 05/22/20 07:25 Last Lab: Laboratory Last Values POC Glucose 94 mg/dL (70-105) 05/17/20 00:09 Hemoglobin A1c 5.3 % (4-6) 05/17/20 10:25 Triglycerides 89 mg/dL (2-149) 05/17/20 10:25 Cholesterol 184 mg/dL (50-199) 05/17/20 10:25 LDL Cholesterol Direct 147 mg/dL (50-130) H 05/17/20 10:25 HDL Cholesterol 45 mg/dL (40-59) 05/17/20 10:25 Cholesterol/HDL Ratio 4.08 % 05/17/20 10:25 TSH 1.180 mlU/mL (0.270-4.200) 05/17/20 10:25 Core Measure Documentation - Palliative Care Palliative Care/ Comfort Measures: Not Applicable - Core Measures Any of the following diagnoses?: none Exam - Constitutional Vitals: Temp Pulse Resp BP Pulse Ox 98.0 F 63 18 100/56 99 05/22/20 07:25 05/22/20 07:25 05/22/20 07:25 05/22/20 07:25 05/22/20 07:25 General appearance: Present: no acute distress - EENT Eyes: Present: PERRL, EOM intact ENT: hearing intact, clear oral mucosa - Respiratory Respiratory effort: normal - Abdominal Male genitourinary: Present: deferred - Integumentary Integumentary: Present: clear, warm, dry Plan Care Plan Goals: Goals: Maintain good and stable mental health. Plan of Treatment: The patient should be compliant with medications, not to use drugs and not to drink alcohol. The patient understands that if suicidal ideas, homicidal ideas, or any endangering thoughts arise, the patient should immediately seek for emergent assistance including but not limited to crisis hot line and emergency room. Follow up with outpatient Psychiatrist and PCP within 7 - 14 days of discharge. Follow up with: EVANGELINA KAPADIA MD [Primary Care Provider] - 7 Days Prescriptions: VALPROIC ACID Liq [DepaKENE Liq] 250 mg PO BID 30 Days oral.liqd QUEtiapine [SEROquel] 100 mg PO BID 30 Days #60 tablet ALPRAZolam [Xanax TAB] 0.5 mg PO QAM 30 Days #30 tablet
[2020-05-22] MEDS: QUEtiapine 100 MG TAB PO SCH ×2 (09:26→21:12)
[2020-05-22] MEDS: levETIRAcetam 500 MG TAB PO SCH ×2 (09:26→21:13)
[2020-05-22] MEDS: VALPROIC ACID 250 MG/5 ML ORAL LIQD PO SCH ×2 (09:26→21:12)
[2020-05-22] MEDS: ALPRAZolam 0.5 MG TAB PO SCH (21:12)
[2020-05-22] MEDS: MELATONIN 5 MG TAB PO PRN (21:25)
[2020-05-23] MEDS: LEVOTHYROXINE 50 MCG TAB PO SCH (05:39)
[2020-05-23 09:57] VITALS: BP 121/48
[2020-05-23] MEDS: levETIRAcetam 500 MG TAB PO SCH (09:58)
[2020-05-23] MEDS: VALPROIC ACID 250 MG/5 ML ORAL LIQD PO SCH (09:58)
[2020-05-23] MEDS: QUEtiapine 100 MG TAB PO SCH (09:58)
--- NOTE | 2020-05-23 10:09 | Discharge Summary ---
Providers - Providers Date of Admission: 05/16/20 23:54 Date of discharge: 05/23/20 Attending physician: MIHAI NANCE MD 05/16/20 18:30 Consult to Physician [CONS] Routine Comment: Consulting Provider: FARHANA HERRERA Physician Instructions: Reason For Exam: Med Managt Primary care physician: EVANGELINA KAPADIA Hospitalization Reason for admission: aggression Admitting Diagnosis: F02.81 - DEMENTIA IN OTH DISEASES CLASSD ELSWHR W BEHAVIORAL DISTURB Condition: Good Hospital course: The patient was provided inpatient psychiatric treatment with safe and supportive care, medication adjustment, adverse effect monitoring, medical evaluations, medical treatments, assessment and psycho-education. The patient's mood, cognition, behavior, moral support are improved and stabilized. St the time of discharge, the patient had no endangering behavior and no debilitating adverse effects. The patient agreed on potential consequences of no treatment and gave informed consent. Disposition: DC/[place]-03 [facility] Time spent for discharge: 38 Allergies/Adverse Reactions: Allergies No Known Allergies Allergy (Unverified 05/16/20 00:30) Vital Signs: Last Vital Signs Temp 98.3 F 05/23/20 09:43 Pulse 63 05/23/20 09:55 Resp 16 05/23/20 09:43 BP 121/48 05/23/20 09:55 Pulse Ox 100 05/23/20 09:55 Last Lab: Laboratory Last Values POC Glucose 94 mg/dL (70-105) 05/17/20 00:09 Hemoglobin A1c 5.3 % (4-6) 05/17/20 10:25 Triglycerides 89 mg/dL (2-149) 05/17/20 10:25 Cholesterol 184 mg/dL (50-199) 05/17/20 10:25 LDL Cholesterol Direct 147 mg/dL (50-130) H 05/17/20 10:25 HDL Cholesterol 45 mg/dL (40-59) 05/17/20 10:25 Cholesterol/HDL Ratio 4.08 % 05/17/20 10:25 TSH 1.180 mlU/mL (0.270-4.200) 05/17/20 10:25 Core Measure Documentation - Palliative Care Palliative Care/ Comfort Measures: Not Applicable - Core Measures Any of the following diagnoses?: none Exam - Constitutional Vitals: Temp Pulse Resp BP Pulse Ox 98.3 F 63 16 121/48 100 05/23/20 09:43 05/23/20 09:55 05/23/20 09:43 05/23/20 09:55 05/23/20 09:55 General appearance: Present: no acute distress - EENT Eyes: Present: PERRL, EOM intact ENT: hearing intact, clear oral mucosa - Neck Neck: Present: supple, normal ROM - Respiratory Respiratory effort: normal Plan Activity: advance as tolerated Weight Bearing Status: Weight Bear as Tolerated Care Plan Goals: Maintain good and stable mental health. Plan of Treatment: The patient should be compliant with medications, not to use drugs, and not to drink alcohol. The patient understands that if suicidal ideas, homicidal ideas or any endangering feeling arise, the patient should seek assistance including, but not limited to crisis hotline, and emergency room. Health Concerns: HTN, Sz disorder, hypothyroidism Assessment: Dementia w/Behavioral Disturbance Follow up with: EVANGELINA KAPADIA MD [Primary Care Provider] - 7 Days Prescriptions: VALPROIC ACID Liq [DepaKENE Liq] 250 mg PO BID 30 Days oral.liqd QUEtiapine [SEROquel] 100 mg PO BID 30 Days #60 tablet ALPRAZolam [Xanax TAB] 0.5 mg PO QAM 30 Days #30 tablet
== END 2020-05-23 17:40 | DRG 884 ==
LOC: UNDOADMIN 18:02 → 3A 18:02 → 5A 23:54
PROVIDERS: ADMIT Psychiatry & Neurology Psychiatry; ATTEND Psychiatry & Neurology Psychiatry
DX: F01.51 Vascular dementia, unspecified severity, with behavioral disturbance (principal); E44.0 Moderate protein-calorie malnutrition; Z68.1 Body mass index [BMI] 19.9 or less, adult; F03.91 Unspecified dementia, unspecified severity, with behavioral disturbance; I67.2 Cerebral atherosclerosis; F20.9 Schizophrenia, unspecified; E03.9 Hypothyroidism, unspecified; F32.9 Major depressive disorder, single episode, unspecified; Z20.828 Contact with and (suspected) exposure to other viral communicable diseases; G40.909 Epilepsy, unspecified, not intractable, without status epilepticus; Z79.899 Other long term (current) drug therapy
CPT/HCPCS: 36415; 80048; 80061; 80307; 80320; 81001; 82962; 83036; 83735; 84439; 84443; 85025; G0378; G0480; U0003

== ENCOUNTER 2021-07-19 02:07 | Emergency (ER) | payer MEDICARE ==
--- NOTE | 2021-07-19 02:17 | Emergency Department Report ---
ED General Adult HPI - General Stated complaint: MH EVAL Time Seen by Provider: 07/19/21 02:13 - History of Present Illness Initial comments: Patient was brought in by EMS from a snf secondary to agitation. Apparently he was agitated at the snf earlier this evening. About 1 hour prior to arrival, the snf staff administered Xanax as well his Seroquel and other medication. Patient has calm down. They told EMS that they wanted him transported here for "evaluation." Patient has no complaint. He has not had pain. He denies fevers or chills. He has no cough or congestion. He does not have any recollection of exactly what happened. He does have a history of dementia per EMS. He has been pleasant and cooperative for EMS. - Related Data Home Medications Medication Instructions Recorded Confirmed Last Taken Levothyroxine [Synthroid] 50 mcg PO QAM 05/16/20 05/17/20 Unknown levETIRAcetam [Keppra TAB] 750 mg PO BID 05/16/20 05/17/20 Unknown Previous Rx's Medication Instructions Recorded Last Taken Type ALPRAZolam [Xanax TAB] 0.5 mg PO QAM 30 Days #30 tablet 05/20/20 Unknown Rx QUEtiapine [SEROquel] 100 mg PO BID 30 Days #60 tablet 05/20/20 Unknown Rx VALPROIC ACID Liq [DepaKENE Liq] 250 mg PO BID 30 Days oral.liqd 05/20/20 Unkno wn Rx Allergies Allergy/AdvReac Type Severity Reaction Status Date / Time No Known Allergies Allergy Unverified 05/16/20 00:30 ED Review of Systems ROS: Stated complaint: MH EVAL Other details as noted in HPI Comment: All other systems reviewed and negative (Patient is confused at baseline according to reports.) Constitutional: denies: fever Eyes: denies: eye pain ENT: denies: throat pain Respiratory: denies: cough Cardiovascular: denies: chest pain Gastrointestinal: denies: abdominal pain Genitourinary: denies: dysuria Musculoskeletal: denies: back pain Neurological: denies: headache Psychiatric: denies: suicidal thoughts ED Past Medical Hx - Past Medical History Hx Hypertension: Yes Hx Congestive Heart Failure: Yes Hx Renal Disease: No Hx Arthritis: No Hx Seizures: Yes Hx Psychiatric Treatment: Yes (schizophrenia, depression, anxiety) Hx Dementia: Yes Additional medical history: hypothyroidism, femur fx, gastritis, GI bleed, dysphagia - Surgical History Hx Cholecystectomy: No Hx Appendectomy: No - Social History Smoking Status: Never Smoker - Medications Home Medications: Home Medications Medication Instructions Recorded Confirmed Last Taken Type Levothyroxine [Synthroid] 50 mcg PO QAM 05/16/20 05/17/20 Unknown History levETIRAcetam [Keppra TAB] 750 mg PO BID 05/16/20 05/17/20 Unknown History ALPRAZolam [Xanax TAB] 0.5 mg PO QAM 30 Days #30 tablet 05/20/20 Unknown Rx QUEtiapine [SEROquel] 100 mg PO BID 30 Days #60 tablet 05/20/20 Unknown Rx VALPROIC ACID Liq [DepaKENE Liq] 250 mg PO BID 30 Days oral.liqd 05/20/20 Unknown Rx ED Physical Exam - General Limitations: Physical Limitation (Confusion), Other General appearance: alert, in no apparent distress - Head Head exam: Present: atraumatic, normocephalic - Eye Eye exam: Present: normal appearance, EOMI. Absent: scleral icterus - ENT ENT exam: Present: mucous membranes dry, normal external ear exam - Neck Neck exam: Present: normal inspection. Absent: meningismus - Respiratory Respiratory exam: Present: normal lung sounds bilaterally. Absent: respiratory distress - Cardiovascular Cardiovascular Exam: Present: regular rate, normal rhythm - GI/Abdominal GI/Abdominal exam: Present: soft. Absent: tenderness - Extremities Exam Extremities exam: Present: normal capillary refill. Absent: calf tenderness - Back Exam Back exam: Absent: CVA tenderness (R), CVA tenderness (L) - Neurological Exam Neurological exam: Present: alert, oriented X3, CN II-XII intact. Absent: motor sensory deficit - Psychiatric Psychiatric exam: Present: normal affect, normal mood - Skin Skin exam: Present: warm, dry ED Course Vital Signs 07/19/21 07/19/21 02:30 03:56 Temperature 98 F Pulse Rate 54 L 89 Respiratory 18 12 Rate Blood Pressure 111/54 Blood Pressure 109/53 [Right] O2 Sat by Pulse 100 96 Oximetry - Reevaluation(s) Reevaluation #1: 07/19/21 02:17 EMS was met upon arrival. Labs were ordered. Old records noted. Reevaluation #2: 07/19/21 04:13 Labs have been noted. Patient is medically cleared. long-term was notified and they are comfortable taking the patient back. ED Medical Decision Making - Lab Data Result diagrams: 07/19/21 02:17 07/19/21 02:17 - Medical Decision Making Patient was sent in from a snf secondary to an episode of aggressive behavior. He was medicated by them and had actually called prior to EMS arrival. There is no obvious metabolic derangement. He does not have any obvious infectious pathology. There is no focal neurologic deficit or findings suggestive of stroke. I suspect that this was related to his ongoing and chronic dementia. Patient does not appear to be toxic. He has been pleasant and cooperative here and not violent whatsoever. Critical Care Time: No Critical care attestation.: If time is entered above; I have spent that time in minutes in the direct care of this critically ill patient, excluding procedure time. ED Disposition Clinical Impression: Anger reaction Dementia with behavioral disturbance Qualifiers: Dementia type: unspecified type Qualified Code(s): F03.91 - Unspecified dementia with behavioral disturbance Disposition: 03 LONG-TERM FACILITY Is pt being admited?: No Condition: Stable Instructions: Dementia Caregiver Guide, Dementia Additional Instructions: Continue to use sedation as indicated. Follow-up with the snf physician for recheck. Return for problems.
[2021-07-19 02:59] LABS: Hemoglobin 12.3 gm/dl (11.8-15.2); Mean Corpuscular HGB Conc 32 % (32-34); Mean Corpuscular Volume 98 fl (84-94); Platelet Count 111 K/mm3 (140-440); Red Blood Count 3.99 M/mm3 (3.65-5.03); Red Cell Distribution Width 13.7 % (13.2-15.2)
[2021-07-19 03:15] LABS: Alanine Aminotransferase 15 units/L (7-56); Albumin 3.9 g/dL (3.9-5); BUN/Creatinine Ratio 22; Blood Urea Nitrogen 22 mg/dL (9-20); Calcium 8.2 mg/dL (8.4-10.2); Hemolysis Index 7
[2021-07-19 03:44] LABS: Bilirubin,Urine NEG (Negative); Blood,Urine NEG (Negative); Color,Urine Yellow (Yellow); Protein,Urine <15 mg/dL mg/dL (Negative)
--- NOTE | 2021-07-19 10:26 | Consultation ---
History of Present Illness - Reason for Consult Consult date: 07/19/21 Reason for consult: agitation - History of Present Psychiatric Illness The patient was seen today. He is a 76y/o male who was brought from a local prison for agitation. The patient has a history of schizophrenia. He appears to have some dementia as well. He is confused and in restraints. But he is calm during the evaluation. He thinks he is in [place]. The patient has poor insight. PAST PSYCHIATRIC HISTORY: Unable to obtain PAST MEDICAL HISTORY: None reported Family Psychiatric History None reported SOCIAL HISTORY Unable to obtain ROS: Constitutional: Negative for weight loss ENT: Negative for stridor Respiratory: Negative for cough or hemoptysis All other systems reviewed and are negative MENTAL STATUS EXAMINATION Unable to obtain Assessment and Plan (1) Schizophrenia Treatment Plan Geodon 10mg IM q6h prn agitation Restart home Seroquel po Protective factors include access to care, no history of suicide attempts, and disability income. MEDICATIONS: Risks, benefits and alternatives of medications discussed with the patient, questions answered and consent obtained from patient. PSYCHOTHERAPY: Supportive psychotherapy provided MEDICAL: Per primary team DELIRIUM PRECAUTIONS: Please re-orient patient frequently, keep lights on during the day, and minimize benzodiazepines and opiates as these medications could worsen patient's confusion. ENDOCRINOLOGY NURSE: per primary DISPOSITION: Recommend acute inpatient psychiatric hospitalization Thank you for the consult. Please contact with any questions and/or concerns. Case staffed with Dr. Stoner Medications and Allergies Allergies Allergy/AdvReac Type Severity Reaction Status Date / Time No Known Allergies Allergy Unverified 05/16/20 00:30 Home Medications Medication Instructions Recorded Confirmed Last Taken Type Levothyroxine [Synthroid] 50 mcg PO QAM 05/16/20 05/17/20 Unknown History levETIRAcetam [Keppra TAB] 750 mg PO BID 05/16/20 05/17/20 Unknown History ALPRAZolam [Xanax TAB] 1 mg PO Q12HR 07/19/21 Unknown History Cholecalciferol (Vitamin D3) 50,000 unit PO 1XW 07/19/21 07/19/21 Unknown History [Vitamin D3] Ferrous Sulfate [Iron 325 MG] 325 mg PO UNK 07/19/21 07/19/21 Unknown History QUEtiapine [SEROquel] 100 mg PO DAILY 07/19/21 Unknown History QUEtiapine [SEROquel] 200 mg PO HS 07/19/21 07/19/21 Unknown History VALPROIC ACID Liq [DepaKENE Liq] 500 mg PO TID 07/19/21 Unknown History Mental Status Exam - Vital signs Last Vital Signs Temp 98 F 07/19/21 02:30 Pulse 67 07/19/21 08:44 Resp 13 07/19/21 08:44 BP 107/52 07/19/21 08:44 Pulse Ox 100 07/19/21 08:44 Results Result Diagrams: 07/19/21 02:17 07/19/21 02:17 Abnormal lab results 07/19/21 07/19/21 Range/Units 02:17 02:17 MCV 98 H (84-94) fl Plt Count 111 L (140-440) K/mm3 Chloride 107.8 H (98-107) mmol/L BUN 22 H (9-20) mg/dL Calcium 8.2 L (8.4-10.2) mg/dL All other labs normal.
[2021-07-19] MEDS ORDERED: ZIPRASIDONE MESYLATE 20 MG VIAL IM PRN (10:28)
[2021-07-19] MEDS ORDERED: QUEtiapine 100 MG TAB PO SCH (11:00)
--- NOTE | 2021-07-19 11:28 | Event Note ---
Date: 07/19/21 pt was assessed by psych , he [facility] meds modified vss . labs normal , awaiting placement
[2021-07-19 18:11] VITALS: BP 128/59
[2021-07-19] MEDS ORDERED: QUEtiapine 200 MG TAB PO SCH (22:00)
== END 2021-07-19 19:35 ==
LOC: ED 02:07
DX: F03.91 Unspecified dementia, unspecified severity, with behavioral disturbance (principal); R45.4 Irritability and anger; Z20.822 Contact with and (suspected) exposure to COVID-19; I11.0 Hypertensive heart disease with heart failure; I50.9 Heart failure, unspecified; F20.9 Schizophrenia, unspecified; E03.9 Hypothyroidism, unspecified; Z79.899 Other long term (current) drug therapy
CPT/HCPCS: 36415; 80053; 80164; 81001; 84443; 85027; 96372; 99285; J3486; U0003